=== PATIENT | female | born 1985 | race Caucasian/White ===

== ENCOUNTER 2017-02-26 09:30 | Emergency (ER) | payer BC ==
[2017-02-26 09:52] VITALS: BP 107/76
--- NOTE | 2017-02-26 10:42 | UC ---
Throat Pain/Nasal Danis HPI - HPI Summary HPI Summary: Pt here w/ ST since yesterday. Tonsils are red, swollen and white white spots. Tried ibuprofen yesterday w/ some relief - none today. Denies fever, chills, sneezing, rhinorrhea, cough, N/V/D, ab pain, joint aches, GIRARD, otalgia. Has some pain w/ swallowing but is still able to eat and drink. No sick contacts but her children are in school - son has allergy sx at present. This pt has h/o strep pharyngitis and this feels the same. - History of Current Complaint Chief Complaint: UCRespiratory Stated Complaint: SORE THROAT Time Seen by Provider: 02/26/17 10:25 Hx Obtained From: Patient Hx Last Menstrual Period: 01/30/17 ?: No - Allergies/Home Medications Allergies/Adverse Reactions: Allergies Allergy/AdvReac Type Severity Reaction Status Date / Time Diphenhydramine Allergy Rash And Verified 02/26/17 09:53 [From Benadryl] Itching PMH/Surg Hx/FS Hx/Imm Hx Previously Healthy: Yes Endocrine History Of: Denies: Diabetes, Thyroid Disease Cardiovascular History Of: Denies: Cardiac Disorders, Hypertension Respiratory History Of: Denies: COPD, Asthma GI/ History Of: Denies: Ulcer Neurological History Of: Reports: Migraine - 2 PER MONTH - Surgical History Surgical History: Yes Surgery Procedure, Year, and Place: C SECTION, 2001, [facility] ORAL SURGERY, 2003 - Family History Known Family History: Positive: Cardiac Disease, Diabetes - Social History Occupation: Employed Full-time Lives: With Family Alcohol Use: None Substance Use Type: None Smoking Status (MU): Never Smoked Tobacco Have You Smoked in the Last Year: No - Immunization History Most Recent Influenza Vaccination: 2012 Most Recent Tetanus Shot: 2013 Most Recent Pneumonia Vaccination: n/a Review of Systems Constitutional: Negative Skin: Negative Eyes: Negative ENT: Sore Throat - see HPI Respiratory: Negative Cardiovascular: Negative Gastrointestinal: Negative Motor: Negative Neurovascular: Negative Musculoskeletal: Negative Neurological: Negative Psychological: Negative All Other Systems Reviewed And Are Negative: Yes Physical Exam Triage Information Reviewed: Yes Appearance: Well-Appearing, No Pain Distress, Well-Nourished Vital Signs: Initial Vital Signs Temp 99.1 F 02/26/17 09:49 Pulse 59 02/26/17 09:49 Resp 16 02/26/17 09:49 BP 107/76 02/26/17 09:49 Pulse Ox 99 02/26/17 09:49 Vital Signs Reviewed: Yes Eye Exam: Normal ENT: Positive: Hearing grossly normal, Pharyngeal erythema, TMs normal, Tonsillar swelling - +2-3, Tonsillar exudate. Negative: Nasal congestion, Nasal drainage, Trismus Dental Exam: Normal Neck: Positive: Supple, Tenderness @ - anterior cc LN's, Enlarged Nodes @ Respiratory Exam: Normal Cardiovascular Exam: Normal Abdominal Exam: Normal Abdomen Description: Positive: Nontender Bowel Sounds: Positive: Present Musculoskeletal Exam: Normal Neurological Exam: Normal Psychological Exam: Normal Skin Exam: Normal Throat Pain/Nasal Course/Dx - Course Course Of Treatment: Due to h/o strep and early rapid strep test which can produce false neg w/in 48 hrs, will start strep tx today. Will send cx to confirm. Pt aware of danger s/sx of when to return to or go to ED. - Differential Dx/Diagnosis Provider Diagnoses: Pharyngitis Discharge - Discharge Plan Condition: Stable Disposition: HOME Prescriptions: Amoxicillin CAP* [Amoxicillin 500 MG CAP*] 500 mg PO Q12H #20 cap Patient Education Materials: Pharyngitis (ED) Referrals: Josh Gaviria MD [Primary Care Provider] - Additional Instructions: You clinically appear to have strep pharyngitis and with a history of this illness will start treatment today. If your culture results indicate this is not strep, you may stop antibiotic as this may be viral. You may use conservative care treatment regardless including but not limited to salt water rinses, drink plenty of fluids, and ibuprofen as needed for pain/fever. *If you develop trouble swallowing, breathing, high fever, vomiting, go to ED
== END 2017-02-26 10:40 | disposition home or self-care (01) ==
LOC: UCEAST 09:30
DX: J02.9 Acute pharyngitis, unspecified (principal); G43.909 Migraine, unspecified, not intractable, without status migrainosus; Z88.8 Allergy status to other drugs, medicaments and biological substances
CPT/HCPCS: 87070; 87651; 99212; G0463